=== PATIENT | male | born 1940 | race Two or more races ===

== ENCOUNTER 2023-10-07 09:29 | Emergency (ER) | payer MEDICARE, OTHER, SELFPAY ==
[2023-10-07 09:36] VITALS: BP 144/52
[2023-10-07 09:39] VITALS: BP 144/52
--- NOTE | 2023-10-07 09:58 | ED.GENMED ---
History of Present Illness
<Kevyn Leo PA-C - Last Filed: 10/07/23 10:54>
General
Chief Complaint: Vascular Access Problem
Source: patient
Exam Limitations: none
Time Seen by Provider: 10/07/23 09:44
Travel History
Have you had any contact with someone who has COVID-19?: Unable to Answer
Do you have any symptoms of coronavirus? Fever > 100 degrees, chills, cough, shortness of breath, sore throat, loss of taste or smell, muscle aches, or headache?: Unable to Answer
History of Present Illness
History of Present Illness:
83-year-old male presents from [facility] facility with bleeding from AV fistula on right upper extremity. He is a Friday dialysis patient. Cannot provide any history. Pressure bandage was applied at the facility.
Past History
<Kevyn Leo PA-C - Last Filed: 10/07/23 10:54>
Past History
ED Past Medical History: HTN, Hypercholesterolemia and Other (ESRD); Negative Cancer, IDDM or DC
ED Past Surgical History: Other (RUE Fistula); Negative Cardiac
Social History
Tobacco: Non-smoker
Alcohol: None
Drug: None
Personal: Other
Employment: Other
Family History
Family History: Unable to obtain
Phy Exam
<Kevyn Leo PA-C - Last Filed: 10/07/23 10:54>
Physical Exam
Physical Exam:
General: Well-appearing male no acute respiratory distress
HEENT: Normocephalic atraumatic
Extremities: AV fistula noted in right upper extremity with thrill. There is a pinhole site of bleeding noted after the pressure bandage was removed. This was a slow rate of bleeding.
Vascular: 2+ radial pulse right wrist
Course
<KELLIE Abbott Last Filed: 10/07/23 10:54>
Vital Signs
Initial and Last Documented VS:
Initial Vital Signs
BP
144/52
10/07/23 09:36
Last Documented Vital Signs
Temp Pulse Resp BP Pulse Ox
98.2 F 65 16 144/70 100
10/07/23 09:39 10/07/23 10:30 10/07/23 11:44 10/07/23 11:44 10/07/23 11:44
<Darnell Cardona, - Last Filed: 10/07/23 13:38>
Vital Signs
Initial and Last Documented VS:
Initial Vital Signs
BP
144/52
10/07/23 09:36
Last Documented Vital Signs
Temp Pulse Resp BP Pulse Ox
98.2 F 65 16 144/70 100
10/07/23 09:39 10/07/23 10:30 10/07/23 11:44 10/07/23 11:44 10/07/23 11:44
<Kevyn Leo PA-C - Last Filed: 10/07/23 10:54>
MDM/Problems Addressed
Differential Diagnosis Includes:
Initial pressure bandage was removed 10 there is still slight ooze. The site was cleansed with saline then surgical foam with nonstick gauze gauze and Coban was applied and a pressure bandage. Will reevalulate.
<Kevyn Leo PA-C - Last Filed: 10/07/23 10:54>
*Critical Care Note
Total Time (30-74mins, 75-104mins- exclusive of procedures): Not Applicable
<Kevyn Leo PA-C - Last Filed: 10/07/23 10:54>
Update Note
Update Note:
Dressing taken down. No further bleeding noted reapplied Coban on top of the gauze and surgical foam. Stable for discharge back to facility
ED Attending Note
<Kevyn Leo PA-C - Last Filed: 10/07/23 10:54>
-
Portions of this chart may have been created with voice recognition software.� Occasional wrong word or��sound alike� substitutions may have occurred due to the inherent limitations of voice recognition software.
<Darnell Cardona DO - Last Filed: 10/07/23 13:38>
ED Attending Note
I performed the substantive portion of visit, reviewed & personally made and approve the management plan that is documented in note by myself or HIEN.: Yes
ED Attending Note:
I have reviewed and agree with history and treatment plan by Harley Leo. Bleeding controlled, stable for discharge.
Discharge Plan
Departure
Patient Disposition: Home (Routine Discharge)
Date of Disposition: 10/07/23
Time of Disposition: 10:53
Patient with high blood pressure during this ER visit?: No
Discharge Problem:
Hemorrhage of arteriovenous fistula
Prescriptions:
No Action
carvedilol 6.25 mg Tablet
3.125 mg feeding tube Q12
atorvastatin 20 mg Tablet
40 mg feeding tube DAILY
insulin glargine [Lantus U-100 Insulin] 100 unit/mL Solution
8 unit SC DAILY
melatonin 3 mg Tablet
6 mg feeding tube HS
insulin aspart U-100 [Novolog U-100 Insulin aspart] 100 unit/mL Solution
0 unit SC ACHS
Patient Comments:
150-200 = 4 units, 151-200=5units, 201-250 = 7 units, 251-300= 10 units.
albuterol sulfate 90 mcg/actuation Hfa Aerosol Inhaler
2 puff INHALATION R Q4HPRN PRN (Reason: sob/wheezing)
acetaminophen [Tylenol] 325 mg Tablet
650 mg feeding tube Q4HPRN PRN (Reason: mild pain)
diphenhydramine-zinc acetate 1-0.1 % Cream
1 applic TOPICAL Q8HPRN PRN (Reason: itchy skin)
Renal Caps 1 mg Capsule
1 cap feeding tube DAILY
isosorbide dinitrate 10 mg Tablet
10 mg feeding tube TID Qty: 0 0RF
docusate sodium [Colace] 100 mg Capsule
100 mg PO BID Qty: 0 0RF
heparin (porcine) 5,000 unit/mL Solution
5,000 unit SC Q12H Qty: 0 0RF
fluticasone furoate-vilanterol [Breo Ellipta] 100-25 mcg/dose Blister With Device
1 inh INHALATION R DAILY Qty: 0 0RF
midodrine 5 mg Tablet
5 mg feeding tube .WITH MEALS
olanzapine 2.5 mg Tablet
2.5 mg feeding tube DAILY
vitamin B complex-folic acid
1 tab G-tube DAILY
Referrals:
Nemesio Sherwood MD [Family Provider] -
Activity Restrictions/Additional Instructions:
Please return here for any worsening symptoms otherwise resume dialysis as planned for tomorrow
Interventions
Interventions:
*Risk Screen - Suicide Last Done: 10/07/23 09:40
*Neglect/Abuse Screening Last Done: 10/07/23 09:40
ED- Fall Risk Assessment Last Done: 10/07/23 09:42
*ED COVID-19 Vaccine History Last Done: 10/07/23 09:41
*Nursing Disposition Last Done: 10/07/23 11:44
Discharge Date and Time
Discharge Date/Time: 10/07/23 11:45
[2023-10-07 10:00] VITALS: BP 144/57
[2023-10-07 11:44] VITALS: BP 144/70
== END 2023-10-07 11:45 | disposition home or self-care (01) ==
LOC: EMR 09:29
PROVIDERS: EMERGENCY PHYSICIAN Emergency Medicine; FAMILY PHYSICIAN Internal Medicine
DX: T82.838A Hemorrhage due to vascular prosthetic devices, implants and grafts, initial encounter (principal); X58.XXXA Exposure to other specified factors, initial encounter; I12.0 Hypertensive chronic kidney disease with stage 5 chronic kidney disease or end stage renal disease; E11.22 Type 2 diabetes mellitus with diabetic chronic kidney disease; N18.6 End stage renal disease; E78.00 Pure hypercholesterolemia, unspecified; Z99.2 Dependence on renal dialysis
CPT/HCPCS: 99282

== ENCOUNTER 2023-12-11 17:26 | Emergency (ER) | payer MEDICARE, OTHER, SELFPAY ==
[2023-12-11] VITALS (7 sets, daily range): BP systolic 153–160; BP diastolic 57–67; BMI 20.5
[2023-12-11 18:51] LABS: COVID-19 Antigen Negative (Negative)
[2023-12-11 18:54] LABS: % Basophils 0.8 % (0-2); % Eosinophils 3.6 % (0-6); % Immature Granulocytes 0.3 % (0-0.5); % Lymphocytes 17.8 % (20.5-51.1); % Monocytes 9.2 % (1.7-9.3); % Neutrophils 68.3 % (42.2-75.2); Absolute Basophils 0.1 10^3/uL (0-0.2); Absolute Eosinophils 0.3 10^3/uL (0-0.7); Absolute Lymphocytes 1.3 10^3/uL (1.2-3.4); Absolute Monocytes 0.7 10^3/uL (0.1-0.6); Absolute Neutrophils 4.9 10^3/uL (1.4-6.5); Hematocrit 35.5 % (39.0-52.0); Hemoglobin 11.1 g/dL (13.0-18.0); Mean Corp Hgb Conc. 31.3 g/dL (33.0-37.0); Mean Corpuscular Hgb 30.6 pg (27.0-31.0); Mean Corpuscular Volume 97.8 fL (80.0-94.0); Mean Platelet Volume 9.6 fL (7.4-10.4); Nucleated Red Blood Cells % 0 % (-); Platelet Count 206 10^3/uL (130-400); Red Blood Cell Count 3.63 10^6/uL (4.70-6.10); Red Cell Dist. Width 15.8 % (11.5-14.5); White Blood Cell Count 7.2 10^3/uL (4.8-10.8)
[2023-12-11 19:07] LABS: Blood Urea Nitrogen 48 mg/dl (9-20); Calcium 9.4 mg/dl (8.4-10.2); Carbon Dioxide 28 mmol/L (22-30); Chloride 93 mmol/L (98-107); Estimated Creatinine Clearance 12 ml/min; Glucose 256 mg/dl (70-99); Potassium 4.5 mmol/L (3.5-5.1); Sodium 130 mmol/L (135-145); eGFR 15.63
--- NOTE | 2023-12-11 19:37 | ED.GENMED ---
History of Present Illness
General
Chief Complaint: Vascular Access Problem
Source: patient
Time Seen by Provider: 12/11/23 18:14
Travel History
Have you had any contact with someone who has COVID-19?: No
Do you have any symptoms of coronavirus? Fever > 100 degrees, chills, cough, shortness of breath, sore throat, loss of taste or smell, muscle aches, or headache?: No
History of Present Illness
History of Present Illness:
83-year-old male brought to the emergency room for evaluation of bleeding from his fistula. Patient had dialysis yesterday. Family noted small ooze coming from the fistulous at the puncture site. Fistula has been working for the past 5 years.
Patient is also noted to have a cough. He is unable to provide any history. Thirdly the family note that the cap to the feeding tube has broken off. They cannot recall when the feeding tube was last changed.
Past History
Past History
ED Past Medical History: HTN, Hypercholesterolemia and Other (ESRD); Negative Cancer, IDDM or NM
ED Past Surgical History: Other (RUE Fistula); Negative Cardiac
Social History
Tobacco: Non-smoker
Alcohol: None
Drug: None
Personal: Other
Employment: Other
Family History
Family History: Unable to obtain
Phy Exam
Physical Exam
Physical Exam:
General: Awake, chronic ill-appearing, nonverbal
Vitals: unremarkable
Head: Atraumatic
Eyes: Pupils equal, EOMI
Throat: Airway intact, no exudates
Neck: Trachea midline
Lungs: Clear and equal b/l
Heart: Regular rate, no murmurs
Abd: Soft, Nontender, feeding tube in place, To the infusion port is broken off no pulsatile mass
Neuro: No acute findings
Skin: Warm, dry, no rash
Extremities: pulses equal b/l, no edema
Course
Orders/Labs/Results
Orders:
Orders
12/11/23 18:21
CR Chest - 2 Views Urgent
Comment:
Reason For Exam: cough, sob
12/11/23 18:29
COVID-19 Antigen Urgent
Source: Nasal Swab
Influenza A+B Rapid Molecular Urgent
MERVAT Source: Nasal Swab
Specimen Description:
12/11/23 18:44
Basic Metabolic Panel Urgent
Complete Blood Count/With Diff Urgent
Blood Culture Q30M
MERVAT Source: Blood/Venous
Specimen Description:
12/11/23 19:00
Blood Culture Q30M
MERVAT Source: Blood/Venous
Specimen Description:
Abnormal Lab Results
12/11/23
18:44
RBC 3.63 L 10^6/uL
(4.70-6.10)
Hgb 11.1 L g/dL
(13.0-18.0)
Hct 35.5 L %
(39.0-52.0)
MCV 97.8 H fL
(80.0-94.0)
MCHC 31.3 L g/dL
(33.0-37.0)
RDW 15.8 H %
(11.5-14.5)
Absolute Monos (auto) 0.7 H 10^3/uL
(0.1-0.6)
Lymphocytes % 17.8 L %
(20.5-51.1)
Sodium 130 L mmol/L
(135-145)
Chloride 93 L mmol/L
(98-107)
BUN 48 H mg/dl
(9-20)
Creatinine 3.7 H mg/dL
(0.7-1.3)
Glucose 256 H mg/dl
(70-99)
12/11/23 18:44
12/11/23 18:44
Vital Signs
Initial and Last Documented VS:
Initial Vital Signs
Pulse Ox
99
12/11/23 17:30
Last Documented Vital Signs
Temp Pulse BP Pulse Ox
99.2 F 74 155/61 97
12/11/23 18:35 12/11/23 17:34 12/11/23 18:00 12/11/23 18:30
MDM/Problems Addressed
Differential Diagnosis Includes:
Thrombocytopenia, stenosis, pseudoaneurysm of the fistula
MDM/Problems Addressed:
Patient brought to the emergency room from [facility] for bleeding from his dialysis fistula. This was dressed with Surgicel and bleeding controlled. Patient does not require emergent intervention at this time but he should follow-up with
vascular surgery for further evaluation of this fistula. Patient also noted to have a cough. Workup for this was negative. No pneumonia on x-ray. Thoroughly the patient's son noted that his feeding tube Broke off. This is a longstanding feeding
tube. This was replaced with an 18 [place] gastrostomy tube exactly the same as what was in there.
*Critical Care Note
Total Time (30-74mins, 75-104mins- exclusive of procedures): Not Applicable
ED Attending Note
-
Portions of this chart may have been created with voice recognition software.� Occasional wrong word or��sound alike� substitutions may have occurred due to the inherent limitations of voice recognition software.
Discharge Plan
Departure
Patient Disposition: Penitentiary/SNF
Date of Disposition: 12/11/23
Time of Disposition: 19:37
Condition: Fair
Discharge Problem:
Cough, Complication of arteriovenous dialysis fistula, Feeding tube dysfunction
Instructions: Cough, Adult (DC)
Prescriptions:
No Action
atorvastatin 20 mg Tablet
40 mg feeding tube DAILY
insulin glargine [Lantus U-100 Insulin] 100 unit/mL Solution
11 unit SC DAILY
melatonin 3 mg Tablet
6 mg feeding tube HS
insulin aspart U-100 [Novolog U-100 Insulin aspart] 100 unit/mL Solution
2 - 8 unit SC MEALS
Patient Comments:
12/11/2023: if 200-250 = 2; 251-300= 4; 301-350= 6; 351-400 = 8
albuterol sulfate 90 mcg/actuation Hfa Aerosol Inhaler
2 puff INHALATION R Q4HPRN PRN (Reason: sob/wheezing)
acetaminophen [Tylenol] 325 mg Tablet
650 mg feeding tube Q4HPRN PRN (Reason: mild pain)
diphenhydramine-zinc acetate 1-0.1 % Cream
1 applic TOPICAL TID
Patient Comments:
12/11/2023: apply to affected area for itching, hold for BP<100 HR<60
Renal Caps 1 mg Capsule
1 cap feeding tube DAILY
isosorbide dinitrate 10 mg Tablet
10 mg feeding tube TID Qty: 0 0RF
heparin (porcine) 5,000 unit/mL Solution
5,000 unit SC Q12H Qty: 0 0RF
fluticasone furoate-vilanterol [Breo Ellipta] 100-25 mcg/dose Blister With Device
1 inh INHALATION R DAILY Qty: 0 0RF
midodrine 5 mg Tablet
5 mg feeding tube MEALS
B Complex-C (W/Folic Acid) tablet
1 tab feeding tube DAILY
carvedilol 3.125 mg Tablet
3.125 mg feeding tube BID
lorazepam 0.5 mg Tablet
0.5 mg PO MOWEFR
docusate sodium 100 mg tablet
100 mg feeding tube BID
Referrals:
Amish Salmon III, MD [Active] -
Nemesio Sherwood MD [Family Provider] -
Activity Restrictions/Additional Instructions:
Pt should have an appointment with either the vascular surgeon who performed the original surgery or Dr. Salmon. There is no evidence for pneumonia on the chest x-ray. Covid and Flu tests are negative.
Interventions
Interventions:
*Risk Screen - Suicide Last Done: 12/11/23 17:42
*General Assessment Last Done: 12/11/23 17:42
*Neglect/Abuse Screening Last Done: 12/11/23 17:42
ED- Fall Risk Assessment Last Done: 12/11/23 17:44
*ED COVID-19 Vaccine History Last Done: 12/11/23 17:42
Discharge Date and Time
Print Language: MONEGASQUE
== END 2023-12-11 23:05 ==
LOC: EMR 17:26
PROVIDERS: EMERGENCY PHYSICIAN Emergency Medicine; FAMILY PHYSICIAN Internal Medicine
DX: R05.9 Cough, unspecified (principal); T82.838A Hemorrhage due to vascular prosthetic devices, implants and grafts, initial encounter; K94.23 Gastrostomy malfunction; Y83.2 Surgical operation with anastomosis, bypass or graft as the cause of abnormal reaction of the patient, or of later complication, without mention of misadventure at the time of the procedure; E78.00 Pure hypercholesterolemia, unspecified; I12.0 Hypertensive chronic kidney disease with stage 5 chronic kidney disease or end stage renal disease; N18.6 End stage renal disease; Z99.2 Dependence on renal dialysis; Z79.4 Long term (current) use of insulin
CPT/HCPCS: 99283; 43762; 71046; 80048; 85025; 87040; 87502; 87811

== ENCOUNTER 2024-03-04 21:12 | Observation (INO) | payer MEDICARE, OTHER, SELFPAY ==
[2024-03-04] VITALS (15 sets, daily range): BP systolic 152–181; BP diastolic 44–80; BMI 22.6
[2024-03-04 14:16] LABS: % Basophils 0.6 % (0-2); % Eosinophils 3.5 % (0-6); % Immature Granulocytes 0.6 % (0-0.5); % Lymphocytes 18.6 % (20.5-51.1); % Monocytes 8.2 % (1.7-9.3); % Neutrophils 68.5 % (42.2-75.2); Absolute Eosinophils 0.2 10^3/uL (0-0.7); Absolute Lymphocytes 1.2 10^3/uL (1.2-3.4); Absolute Monocytes 0.5 10^3/uL (0.1-0.6); Absolute Neutrophils 4.5 10^3/uL (1.4-6.5); Hematocrit 24.4 % (39.0-52.0); Hemoglobin 7.9 g/dL (13.0-18.0); Mean Corp Hgb Conc. 32.4 g/dL (33.0-37.0); Mean Corpuscular Hgb 32.2 pg (27.0-31.0); Mean Corpuscular Volume 99.6 fL (80.0-94.0); Mean Platelet Volume 9.4 fL (7.4-10.4); Nucleated Red Blood Cells % 0 % (-); Platelet Count 192 10^3/uL (130-400); Red Blood Cell Count 2.45 10^6/uL (4.70-6.10); Red Cell Dist. Width 14.7 % (11.5-14.5); White Blood Cell Count 6.6 10^3/uL (4.8-10.8)
[2024-03-04 14:35] LABS: ALT (SGPT) 26 U/L (0-50); AST (SGOT) 27 U/L (17-59); Albumin 3.7 g/dl (3.5-5.0); Alkaline Phosphatase 504 U/L (38-126); Blood Urea Nitrogen 53 mg/dl (9-20); Calcium 9.8 mg/dl (8.4-10.2); Carbon Dioxide 32 mmol/L (22-30); Chloride 93 mmol/L (98-107); Glucose 101 mg/dl (70-99); Potassium 3.8 mmol/L (3.5-5.1); Sodium 132 mmol/L (135-145); Total Bilirubin 0.6 mg/dl (0.2-1.3); Total Protein 7.1 g/dl (6.3-8.2); eGFR 22.82
--- NOTE | 2024-03-04 14:36 | ED.GENMED ---
History of Present Illness
<Myla Antonio PA-C - Last Filed: 03/04/24 16:38>
General
Chief Complaint: Abnormal Lab Value
Source: ambulance crew and alf
Exam Limitations: non verbal-adult
Time Seen by Provider: 03/04/24 13:48
Nursing documentation reviewed up to this point in time: agreed with
History of Present Illness
History of Present Illness:
PT IS A 83 Y/O M with h/o CAD, cardiomyopathy, ESRD on HD MWF last dialyzed yesterday
[facility]
pt apparently has been having hg int he 7s chronically for months'
he was last dialyzed yesterday
pt has no complaitns but he is mostly nonverbal
Past History
<KELLIE Macias Last Filed: 03/04/24 16:38>
Past History
ED Past Medical History: HTN, Hypercholesterolemia and Other (ESRD); Negative Cancer, IDDM or MS
ED Past Surgical History: Other (RUE Fistula); Negative Cardiac
Social History
Tobacco: Non-smoker
Alcohol: None
Drug: None
Personal: Other
Employment: Other
Family History
Family History: Unable to obtain
Review of Systems
<Myla Antonio PA-C - Last Filed: 03/04/24 16:38>
Review of Systems
Allergies reviewed?: Yes
Unable to obtain full review of systems at this time due to: non-verbal
Phy Exam
<Myla Antonio PA-C - Last Filed: 03/04/24 16:38>
Physical Exam
Physical Exam:
GENERAL: Alert , in no apparent distress
EYE: pupils equal and reactive
NECK: Supple
ENT: o/p clr, mmm.
CARDIAC: Regular rate and rhythm, murmur
LUNGS: Clear breath sounds bilaterally, no acute respiratory distress, no wheezes/rales/rhonchi
ABDOMEN: Soft, without focal tenderness, no r/g, no cvat, normal bowel sounds
heme neg brown stool
peg tube
NEUROLOGICAL: Awake; unable to assess status; he does respond to questions but i am unable to understand him
generally weak
smiles at times
SKIN: Warm and dry,
MUSCULOSKELETAL: No edema, contractures
PSYCH: Normal and appropriate interaction.
Course
<Myla Antonio PA-C - Last Filed: 03/04/24 16:38>
Orders/Labs/Results
Orders:
Orders
03/04/24 13:53
Type+Screen Urgent
Complete Blood Count/With Diff Urgent
Comprehensive Metabolic Panel Urgent
03/04/24 14:34
CR Chest - 2 Views Urgent
Comment:
Reason For Exam: ASSESS FLUID STATUS
03/04/24 14:58
Blood Bank Products [* Blood Bank Products] Urgent
Blood Bank Products: *Packed RBC Leuko(PRBC's)
Quantity: 1
Transfuse Today: Yes
Reason: Anemia
03/04/24 17:17
Ipratropium/Albuterol Sulfate [Duoneb] 3 ml .ROUTE .STK-MED ONE
03/04/24 17:18
Ipratropium/Albuterol Sulfate [Duoneb] 3 ml INH R NOW ONE
03/04/24 18:58
Diphenhydramine [Benadryl] 25 mg IV NOW STA
03/04/24 19:19
Portable Chest Xray [CR Chest Portable - 1 View] Stat
Comment: post 1 unit PRBC transfusion, new Lsided crackles
Reason For Exam: increasing SOBand restlessness
Reason Study Needs to be Portable: Patient Unstable
Abnormal Lab Results
03/04/24 03/04/24 03/04/24
13:53 14:58 16:27
RBC 2.45 L 10^6/uL
(4.70-6.10)
Hgb 7.9 L g/dL
(13.0-18.0)
Hct 24.4 L %
(39.0-52.0)
MCV 99.6 H fL
(80.0-94.0)
MCH 32.2 H pg
(27.0-31.0)
MCHC 32.4 L g/dL
(33.0-37.0)
RDW 14.7 H %
(11.5-14.5)
Immature Gran % 0.6 H %
(0-0.5)
Lymphocytes % 18.6 L %
(20.5-51.1)
Sodium 132 L mmol/L
(135-145)
Chloride 93 L mmol/L
(98-107)
Carbon Dioxide 32 H mmol/L
(22-30)
BUN 53 H mg/dl
(9-20)
Creatinine 2.7 H mg/dL
(0.7-1.3)
Glucose 101 H mg/dl
(70-99)
Alkaline Phosphatase 504 H U/L
(38-126)
POC Glucose 105 H mg/dl
(70-99)
Crossmatch IS Only See Detail See Detail
03/04/24 13:53
03/04/24 13:53
Vital Signs
Initial and Last Documented VS:
Initial Vital Signs
Temp Pulse Resp BP Pulse Ox
97.8 F 73 30 160/61 94
03/04/24 13:42 03/04/24 13:42 03/04/24 13:42 03/04/24 13:42 03/04/24 13:42
Last Documented Vital Signs
Temp Pulse Resp BP Pulse Ox
98.5 F 74 36 169/61 99
03/04/24 19:22 03/04/24 19:22 03/04/24 19:22 03/04/24 19:22 03/04/24 19:22
<Soraya Szymanskifelicitas, DO - Last Filed: 03/04/24 20:25>
Orders/Labs/Results
Orders:
Orders
03/04/24 13:53
Type+Screen Urgent
Complete Blood Count/With Diff Urgent
Comprehensive Metabolic Panel Urgent
03/04/24 14:34
CR Chest - 2 Views Urgent
Comment:
Reason For Exam: ASSESS FLUID STATUS
03/04/24 14:58
Blood Bank Products [* Blood Bank Products] Urgent
Blood Bank Products: *Packed RBC Leuko(PRBC's)
Quantity: 1
Transfuse Today: Yes
Reason: Anemia
03/04/24 17:17
Ipratropium/Albuterol Sulfate [Duoneb] 3 ml .ROUTE .STK-MED ONE
03/04/24 17:18
Ipratropium/Albuterol Sulfate [Duoneb] 3 ml INH R NOW ONE
03/04/24 18:58
Diphenhydramine [Benadryl] 25 mg IV NOW STA
03/04/24 19:19
Portable Chest Xray [CR Chest Portable - 1 View] Stat
Comment: post 1 unit PRBC transfusion, new Lsided crackles
Reason For Exam: increasing SOBand restlessness
Reason Study Needs to be Portable: Patient Unstable
Abnormal Lab Results
03/04/24 03/04/24 03/04/24
13:53 14:58 16:27
RBC 2.45 L 10^6/uL
(4.70-6.10)
Hgb 7.9 L g/dL
(13.0-18.0)
Hct 24.4 L %
(39.0-52.0)
MCV 99.6 H fL
(80.0-94.0)
MCH 32.2 H pg
(27.0-31.0)
MCHC 32.4 L g/dL
(33.0-37.0)
RDW 14.7 H %
(11.5-14.5)
Immature Gran % 0.6 H %
(0-0.5)
Lymphocytes % 18.6 L %
(20.5-51.1)
Sodium 132 L mmol/L
(135-145)
Chloride 93 L mmol/L
(98-107)
Carbon Dioxide 32 H mmol/L
(22-30)
BUN 53 H mg/dl
(9-20)
Creatinine 2.7 H mg/dL
(0.7-1.3)
Glucose 101 H mg/dl
(70-99)
Alkaline Phosphatase 504 H U/L
(38-126)
POC Glucose 105 H mg/dl
(70-99)
Crossmatch IS Only See Detail See Detail
03/04/24 13:53
03/04/24 13:53
Vital Signs
Initial and Last Documented VS:
Initial Vital Signs
Temp Pulse Resp BP Pulse Ox
97.8 F 73 30 160/61 94
03/04/24 13:42 03/04/24 13:42 03/04/24 13:42 03/04/24 13:42 03/04/24 13:42
Last Documented Vital Signs
Temp Pulse Resp BP Pulse Ox
98.5 F 74 36 169/61 99
03/04/24 19:22 03/04/24 19:22 03/04/24 19:22 03/04/24 19:22 03/04/24 19:22
<Myla Antonio PA-C - Last Filed: 03/04/24 16:38>
MDM/Problems Addressed
Differential Diagnosis Includes:
anemia of chronic diseae, GI bleed
MDM/Problems Addressed:
83 y/o M with h/o esrd on hd
here with persistent anemia
apparently there was a low hg in dialysis yesterday
he was sent her for transfusion
I spoke with the nurse at [place] [facility] he says that he usually has hemoglobins in the low sevens. He was adopted above a for several months. She was unclear why the patient needed to be transported and thus giving the phone number to speak with
the physician who sent him here. I talked to Dr. Olsen he said that the patient's family is ultimately going to take him home. It is unclear whether will be hospice or not but in order for the patient to have a little bit better quality of life the
physician wanted him to have 1 unit of blood. Okay with him being transported back today. He is not fluid overloaded at this point. He was dialyzed yesterday. He is afebrile and heme-negative from below. I called the son and obtained verbal
consent over the phone. Will transfuse and discharge back to facility
<Myla Antonio PA-C - Last Filed: 03/04/24 16:38>
*Critical Care Note
Total Time (30-74mins, 75-104mins- exclusive of procedures): 30
comment:
Critical care statement: A total of 30 minutes of critical care time was provided for this patient. This includes management of unstable vital signs, evaluation of the patient at bedside, reviewing the patient's pertinent medical records, discussion
with consultants, review of old EKGs and review of pertinent medical records. This time with separate from time utilized to perform the aforementioned documented procedures
ED Attending Note
<Myla Antonio PA-C - Last Filed: 03/04/24 16:38>
-
Portions of this chart may have been created with voice recognition software.� Occasional wrong word or��sound alike� substitutions may have occurred due to the inherent limitations of voice recognition software.
<Sorayanerissa Greene, DO - Last Filed: 03/04/24 20:25>
ED Attending Note
Patient seen and examined by attending physician: Yes
I performed the substantive portion of visit, reviewed & personally made and approve the management plan that is documented in note by myself or HIEN.: Yes
I performed a history and physical exam of patient and discussed management with resident, I reviewed resident's note and agree with documented findings and plan of care.: Yes
ED Attending Note:
Patient initially seen and evaluated by physician video library assistant. Patient is in end-stage renal disease the patient, receives dialysis MWF. 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 Patient was sent from
his facility for evaluation of his anemia and need for transfusion. Hemoglobin here found to be 7.9. In discussion with his physician, recommending that he receive 1 unit of blood. Plan was for patient to go back to his facility after transfusion
has been completed.
Patient received transfusion, however after transfusion complete, patient increasingly dyspneic. On pulmonary examination, crackles bilaterally. Patient initially had a chest x-ray, without significant acute cardiopulmonary disease. Repeat chest
x-ray shows interval changes with pulmonary edema. Patient does not make urine, cannot administer Lasix. Patient is due for dialysis tomorrow. For this reason feel patient warrants admission for continued respiratory monitoring, and hemodialysis
in the morning.
Discharge Plan
Departure
Patient with high blood pressure during this ER visit?: No
Condition: Fair
Covid-19: Not Applicable
Discharge Problem:
Anemia
Instructions: Anemia of inflammation (anemia of chronic disease)
Prescriptions:
No Action
insulin glargine [Lantus U-100 Insulin] 100 unit/mL Solution
15 unit SC DAILY
melatonin 3 mg Tablet
6 mg feeding tube HS
insulin aspart U-100 [Novolog U-100 Insulin aspart] 100 unit/mL Solution
0 sliding scale dose SC MEALS
Patient Comments:
03/04/24: if 200-250 = 2u; 251-300= 4u; 301-350= 6u; 351-400 = 8u
albuterol sulfate 90 mcg/actuation Hfa Aerosol Inhaler
2 puff INHALATION R Q4HPRN PRN (Reason: sob/wheezing)
acetaminophen [Tylenol] 325 mg Tablet
650 mg feeding tube Q4HPRN PRN (Reason: mild pain)
isosorbide dinitrate 10 mg Tablet
10 mg feeding tube TID Qty: 0 0RF
heparin (porcine) 5,000 unit/mL Solution
5,000 unit SC Q12H Qty: 0 0RF
fluticasone furoate-vilanterol [Breo Ellipta] 100-25 mcg/dose Blister With Device
1 inh INHALATION R DAILY Qty: 0 0RF
B Complex-C (W/Folic Acid) tablet
1 tab feeding tube DAILY
docusate sodium 50 mg/5 mL Liquid
10 ml feeding tube BID
sennosides [senna] 8.6 mg Tablet
8.6 mg feeding tube HS
carvedilol 6.25 mg Tablet
6.25 mg feeding tube BID
ipratropium-albuterol 0.5 mg-3 mg(2.5 mg base)/3 mL Solution For Nebulization
3 ml INHALATION R Q8HPRN
polyethylene glycol 3350 [Miralax] 17 gram Powder In Packet
17 g feeding tube DAILYPRN PRN (Reason: constipation)
lorazepam 2 mg Tablet
2 mg feeding tube MOWEFR
lorazepam 1 mg Tablet
1 mg feeding tube HS
midodrine 10 mg Tablet
10 mg feeding tube MOWEFR
Referrals:
Nemesio Sherwood MD [Family Provider] -
Activity Restrictions/Additional Instructions:
WE GAVE LEAH 1 UNIT OF BLOOD
RETURN FOR ANY COCNERNS.
Interventions
Interventions:
*Risk Screen - Suicide Last Done: 03/04/24 13:42
*General Assessment Last Done: 03/04/24 13:42
*Neglect/Abuse Screening Last Done: 03/04/24 13:42
ED- Fall Risk Assessment Last Done: 03/04/24 19:22
Discharge Date and Time
Print Language: PANAMANIAN
[2024-03-04 16:28] LABS: Glucose - Point of Care 105 mg/dl (70-99)
[2024-03-04] MEDS: DUONEB 3 ML INH (17:19)
[2024-03-04] MEDS: BENADRYL 25 MG IV (19:45)
--- NOTE | 2024-03-04 20:45 | HPS.HSE ---
Family Physician
-
Family Physician: Nemesio Sherwood
Chief Complaint
-
Shortness of breath
History of Present Illness
This is an 83-year-old Polish speaking male with past medical history of end-stage renal disease on hemodialysis Friday via a right upper extremity AV fistula, Parkinson disease, diabetes on insulin, hypertension, anemia of chronic
disease who presents to the emergency department for a blood transfusion from he is [facility].
Patient apparently has had blood transfusion in the past. Per patient and family members has been no episode of melena or hematochezia. He had a episode of extensive bleeding last week due to pulling out the needle during dialysis secondary to
agitation. His range of hemoglobin in the labs he have been from 7.2-11.1. He is not on any anticoagulation.
The plan by ED was for the patient to receive a unit of blood and be sent back to the [facility]. Hemoglobin was 7.9 patient received 1 unit. After 1 unit the patient started having respiratory distress with shortness of breath. Oxygen
saturation declined and was placed on 2 L with a saturation of 98%. Repeat x-ray shows pulmonary edema.
Rest of his labs are unremarkable and consistent with ESRD.
Medical History
Past Medical History
Past Medical History: Reports HTN, IDDM and Renal Failure
Additional Past Medical History:
Parkinson disease
Past Surgical History: Reports None
Social History
Unable to obtain full social history at this time due to: Language Barrier
Tobacco: Non-smoker
Alcohol: None
Drug: None
Personal: Single
Living: Usp
Employment: Retired
Family History
Family History: Not pertinent
Allergies / Home Medications
Allergies reflects when Allergies were last updated in [facility].
Home Medications with original date entered in [facility]
Allergy/Medication List:
Allergies
Allergy/AdvReac Type Severity Reaction Status Date / Time
No Known Allergies Allergy Verified 12/11/23 17:41
Home Medications
insulin aspart U-100 100 unit/mL subcutaneous solution (Novolog U-100 Insulin aspart) 0 sliding scale dose SC MEALS 05/22/23
insulin glargine 100 unit/mL subcutaneous solution (Lantus U-100 Insulin) 15 unit SC DAILY 05/22/23
melatonin 3 mg tablet 6 mg feeding tube HS 05/22/23
albuterol sulfate 90 mcg/actuation aerosol inhaler 2 puff inhalation R Q4HPRN PRN sob/wheezing 06/13/23
acetaminophen 325 mg tablet (Tylenol) 650 mg feeding tube Q4HPRN PRN mild pain 08/27/23
fluticasone furoate 100 mcg-vilanterol 25 mcg/dose inhalation powder (Breo Ellipta) 1 inh inhalation R DAILY Lung/breathing issues #0 ea 08/29/23
heparin (porcine) 5,000 unit/mL injection solution 5,000 unit SC Q12H Blood clot prevention/tx #0 mL 08/29/23
isosorbide dinitrate 10 mg tablet 10 mg feeding tube TID Blood pressure #0 tabs 08/29/23
B Complex-C (W/Folic Acid) 1 tab feeding tube DAILY 12/11/23
carvedilol 6.25 mg tablet 6.25 mg feeding tube BID 03/04/24
docusate sodium 50 mg/5 mL oral liquid 10 ml feeding tube BID 03/04/24
ipratropium 0.5 mg-albuterol 3 mg (2.5 mg base)/3 mL nebulization soln 3 ml inhalation R Q8HPRN 03/04/24
lorazepam 1 mg tablet 1 mg feeding tube HS 03/04/24
lorazepam 2 mg tablet 2 mg feeding tube MOWEFR 03/04/24
midodrine 10 mg tablet 10 mg feeding tube MOWEFR 03/04/24
polyethylene glycol 3350 17 gram oral powder packet (Miralax) 17 g feeding tube DAILYPRN PRN constipation 03/04/24
sennosides 8.6 mg tablet (senna) 8.6 mg feeding tube HS 03/04/24
Review of Systems
-
History Source: Family
Constitutional: Reports No Symptoms
EENT: Reports No Symptoms
Respiratory: Reports No Symptoms
Cardiac: Reports No Symptoms
Abdomen/GI: Reports No Symptoms
: Reports No Symptoms
Musculoskeletal: Reports No Symptoms
Skin: Reports No Symptoms
Neurological: Reports No Symptoms
Endocrine: Reports No Symptoms
Hematologic/Lymphatic: Reports No Symptoms
Psych: Reports No Symptoms
Physical Exam
Vital Signs
Vital Signs
Temp Pulse Resp BP Pulse Ox
98.5 F 74 36 169/61 99
03/04/24 19:22 03/04/24 19:22 03/04/24 19:22 03/04/24 19:22 03/04/24 19:22
Physical Exam
General: No Apparent Distress
HEENT: NormoCephalic, Anicteric, Moist mucous membranes, PERRLA and Oxygen
Respiratory: Crackles
Cardiac: S1/S2 and Regular Rhythm
Breast: Deferred by me
GI: Soft, Non Tender and Non Distended
Rectal: Deferred by Provider
Genito-urinary: Deferred by me
Musculoskeletal: No Clubbing, No Cyanosis and No Edema
Skin: Warm
Neuro: Awake, Alert and Nonfocal/grossly intact
Hematologic/Lymphatic: No Lymphadenopathy
Psych: Calm
Laboratory Results
-
03/04/24 13:53
03/04/24 13:53
Laboratory Results
Total Bilirubin 0.6 mg/dl (0.2-1.3) 03/04/24 13:53
AST 27 U/L (17-59) 03/04/24 13:53
ALT 26 U/L (0-50) 03/04/24 13:53
Alkaline Phosphatase 504 U/L (38-126) H 03/04/24 13:53
Data Reviewed
-
Diagnostic Radiology: Image Personally Visualized and interpreted
Lab Data: Labs Reviewed by me
Old Records: Reviewed
Impression/Plan
-
IMPRESSION:
PLAN:
1. Acute pulmonary edema - Patient with acute post-transfusion pulmonary edema. Iatrogenic. Has bilateral crackles on ausculation with new infiltrates on repeat ECG after transfusion c/w acute pulmonary edema. Has had episodes of pulmonary edema
in the past. Diastolic CHF. Last HD was yesterday. Currently o2 sat is 99% on 2 L and patient is comfortable. WOB is acceptable.
- admit to medsurg obs
- supplemental oxygen for now.
- plan for urgent HD in am, consulted nephrology
- ntg if hypertensive.
- hold tubefeeds and place fluid restrictions.
- hold midodrine
2. Anemia - ACD. Hgb 7.9, no indication for acute transfusion. Can be managed per renal with ANAYA/Iron
- no indication for transfusion but s/p 1 unit in ED
- check iron panel, folate, b12 and ferritin
- f/u with nephrology
3. DM II - 15 lantus HS and sliding scale per home regimen
- holding lantus while off TF
- sliding scale insulin q 6 hours
4. ESRD - HD M/W/F
- nephrology consult,
- holding TF for now
DVT PPX - heparin sq
Full Code
--- NOTE | 2024-03-04 23:00 | PTCARENOTE ---
Received patient from ED. stable vitals. No distress noted. Gtube intact and clamped. Patient's son at bedside. confused to place/time/ situation. Bed alarm on for safety. 100% on 2L n/c. POC reviewed with patient and family.
[2024-03-04] MEDS: ISORDIL 10 MG TUBE (23:06)
[2024-03-04] MEDS: ATIVAN 1 MG TUBE (23:06)
[2024-03-04] MEDS: SENOKOT 8.6 MG TUBE (23:06)
[2024-03-04] MEDS: MELATONIN 6 MG TUBE (23:06)
[2024-03-04] MEDS: TYLENOL 650 MG TUBE (23:07)
[2024-03-04 23:17] LABS: Glucose - Point of Care 154 mg/dl (70-99)
[2024-03-05] MEDS: NOVOLOG FLEXPEN-LOW RESISTANCE 1 UNITS SC (00:42)
[2024-03-05 06:00] VITALS: BMI 22.9
[2024-03-05 06:02] LABS: Glucose - Point of Care 135 mg/dl (70-99)
[2024-03-05] MEDS: NOVOLOG FLEXPEN-LOW RESISTANCE SC ×2 (06:40→12:19)
[2024-03-05 07:34] VITALS: BP 165/61
[2024-03-05] MEDS: HEPARIN 5000 UNITS SC (07:38)
[2024-03-05] MEDS: ATIVAN 2 MG TUBE (07:38)
[2024-03-05] MEDS: COLACE LIQUID 100 MG TUBE (07:38)
[2024-03-05] MEDS: B COMPLEX w/VITAMIN C 1 CAPLET TUBE (07:38)
[2024-03-05] MEDS: ISORDIL TUBE (07:45)
[2024-03-05] MEDS: SYMBICORT 80/4.5 MCG INHALER 2 PUFF INH (07:46)
[2024-03-05] MEDS: RETACRIT 10000 UNITS IV (08:45)
[2024-03-05] MEDS: HEPARIN 500 UNITS IV (08:46)
[2024-03-05 08:50] LABS: Hematocrit 25.8 % (39.0-52.0); Hemoglobin 8.6 g/dL (13.0-18.0); Mean Corp Hgb Conc. 33.3 g/dL (33.0-37.0); Mean Corpuscular Volume 93.1 fL (80.0-94.0); Mean Platelet Volume 9.7 fL (7.4-10.4); Platelet Count 183 10^3/uL (130-400); Red Blood Cell Count 2.77 10^6/uL (4.70-6.10); White Blood Cell Count 6.9 10^3/uL (4.8-10.8)
[2024-03-05 09:01] LABS: Carbon Dioxide 23 mmol/L (22-30); Chloride 95 mmol/L (98-107); Iron 90 ug/dl (49-181); Potassium 3.9 mmol/L (3.5-5.1); Sodium 132 mmol/L (135-145)
[2024-03-05 09:11] LABS: Percent Saturation 37 % (20-50); Total Iron Binding Capacity 240 ug/dl (261-462)
--- NOTE | 2024-03-05 09:47 | W.CON.NEPH ---
Consultation
-
Date/Time Consultation Requested: 03/04/2024 22:13
Date/Time Consultation Performed: 03/05/2024 9:47AM
Requesting Provider: Hasmukh Rose
Performing Provider: Enma Morales
Reason for Consultation: ESRD on HD
Medical History
-
Chief Complaint: ESRD on HD
History of Present Illness:
Mr. Faulkner is a 83-year-old [facility] gentleman who follows usually at [facility], who has end-stage renal disease on hemodialysis for about four or five years time now. He is dialyzed via an AV fistula. He also has a history of Parkinson's
disease, anemia and came in for acute on chronic anemia requiring blood transfusion. Isamar has had transfusions in the past. He had extensive bleeding last weeka fter pulling out his needle during dialysis due to agitation. After his transfusion
in the ED, he was short of breath and had pulm edema. He was admitted for further management.
We are asked to assist in the management of his ESRD issues. He has also had history of hypertension on a multi-drug regimen and diabetes mellitus type 2 on insulin therapy. These have otherwise been fairly stable.
Past Medical History
1. Diabetes mellitus type 2.
2. Hypertension.
3. Hyperlipidemia.
4. ESRD.
5. Cataract surgery.
6. Appendectomy.
7. Left AV fistula.
8. Lumbar stenosis.
9. Bilateral footdrop.
10. Heart failure.
11. Cataract surgery.
Past Medical History: Other
Social History
Tobacco: Non-Smoker
Alcohol: None
Drug: None
Personal:
Living: Intermediate
Family History
no CKD
Allergies / Home Medications
Allergy/AdvReac Type Severity Reaction Status Date / Time
No Known Allergies Allergy Verified 12/11/23 17:41
�Medication �Instructions �Recorded �Confirmed �Type
insulin aspart U-100 100 unit/mL 0 sliding scale dose SC MEALS 05/22/23 03/04/24 History
subcutaneous solution (Novolog Diabetes
U-100 Insulin aspart)
insulin glargine 100 unit/mL 15 unit SC DAILY Diabetes 05/22/23 03/04/24 History
subcutaneous solution (Lantus
U-100 Insulin)
melatonin 3 mg tablet 6 mg feeding tube HS 05/22/23 03/04/24 History
albuterol sulfate 90 mcg/actuation 2 puff inhalation R Q4HPRN PRN 06/13/23 03/04/24 History
aerosol inhaler sob/wheezing
acetaminophen 325 mg tablet 650 mg feeding tube Q4HPRN PRN 08/27/23 03/04/24 History
(Tylenol) mild pain
fluticasone furoate 100 1 inh inhalation R DAILY 08/29/23 03/04/24 Rx
mcg-vilanterol 25 mcg/dose Lung/breathing issues #0 ea
inhalation powder (Breo Ellipta)
heparin (porcine) 5,000 unit/mL 5,000 unit SC Q12H Blood clot 08/29/23 03/04/24 Rx
injection solution prevention/tx #0 mL
isosorbide dinitrate 10 mg tablet 10 mg feeding tube TID Blood 08/29/23 03/04/24 Rx
pressure #0 tabs
B Complex-C (W/Folic Acid) 1 tab feeding tube DAILY 12/11/23 03/04/24 History
carvedilol 6.25 mg tablet 6.25 mg feeding tube BID Blood 03/04/24 03/04/24 History
Pressure
docusate sodium 50 mg/5 mL oral 10 ml feeding tube BID Constipation 03/04/24 03/04/24 History
liquid
ipratropium 0.5 mg-albuterol 3 mg 3 ml inhalation R Q8HPRN 03/04/24 03/04/24 History
(2.5 mg base)/3 mL nebulization Lung/Breathing Issues
soln
lorazepam 1 mg tablet 1 mg feeding tube HS 03/04/24 03/04/24 History
lorazepam 2 mg tablet 2 mg feeding tube MOWEFR Mental 03/04/24 03/04/24 History
Health/Anxiety
midodrine 10 mg tablet 10 mg feeding tube MOWEFR 03/04/24 03/04/24 History
polyethylene glycol 3350 17 gram 17 g feeding tube DAILYPRN PRN 03/04/24 03/04/24 History
oral powder packet (Miralax) constipation
sennosides 8.6 mg tablet (senna) 8.6 mg feeding tube HS Constipation 03/04/24 03/04/24 History
Review of Systems
-
Unable to obtain full review of systems at this time due to: Dementia, Language Barrier and Other (lethargy)
History Source: Patient
Physical Exam
Vital Signs
Vital Signs
Temp Pulse Resp BP Pulse Ox
98.1 F 73 16 165/61 100
03/05/24 07:34 03/05/24 07:45 03/05/24 07:45 03/05/24 07:34 03/05/24 07:45
Lab Results
WBC 6.9 10^3/uL (4.8-10.8) 03/05/24 08:22
RBC 2.77 10^6/uL (4.70-6.10) L 03/05/24 08:22
Hgb 8.6 g/dL (13.0-18.0) L 03/05/24 08:22
Hct 25.8 % (39.0-52.0) L 03/05/24 08:22
Plt Count 183 10^3/uL (130-400) 03/05/24 08:22
Sodium 132 mmol/L (135-145) L 03/05/24 08:22
Potassium 3.9 mmol/L (3.5-5.1) 03/05/24 08:22
Chloride 95 mmol/L (98-107) L 03/05/24 08:22
Carbon Dioxide 23 mmol/L (22-30) 03/05/24 08:22
BUN 53 mg/dl (9-20) H 03/04/24 13:53
Creatinine 2.7 mg/dL (0.7-1.3) H 03/04/24 13:53
eGFR 22.82 03/04/24 13:53
Glucose 101 mg/dl (70-99) H 03/04/24 13:53
Calcium 9.8 mg/dl (8.4-10.2) 03/04/24 13:53
Albumin 3.7 g/dl (3.5-5.0) 03/04/24 13:53
Physical Exam
General: No Distress, Nontoxic and Other (resting comfortably )
HEENT: PERRL, EOMI, Conjunctivae Clear, Oropharynx Clear/Moist, Dentition Intact, Facial Symmetry, Neck Supple, Trachea Midline, No JVD and No Thyromegaly
Respiratory: Crackels
Cardiac: S1/S2, Regular Rate/Rhythm and No Edema
Breast: N/A
Abdomen: Soft, Nontender, Nondistended, Normal Bowel Sounds and No Hepatosplenomegaly
Rectal: Deferred by Provider
Genito-urinary: No Costovertebral Tender
Musculoskeletal: No Clubbing, No Cyanosis and No Edema
Skin: Warm, Dry, No Clubbing, No Cyanosis, Normal Turgor and No Bruising
Neuro: Other (sleeping comfortably)
Hematologic/Lymphatic: No Cervical Lymphadenopathy
Data Reviewed
-
Radiology: Image Personally Visualized and interpreted (pulmonary edema noted )
Labs: Labs Reviewed by me, Discussed with Nurse and Discussed with Patient
Old Records: Reviewed
Assessment/Plan
-
Assessment:
Anemia
ESRD on HD
CHF
T2DM
HTN
Plan:
- HD today per usual schedule with plan for 3-3.5L UF
- s/p blood transfusion
--- NOTE | 2024-03-05 09:56 | W.PN.NEPH.HD ---
Assessment
-
- try to maximize UF as much as possible
- resting comfortably
Progress Note - Hemodialysis
-
Date of Service: March 05, 2024
Duration: 30 minutes and 3 hours
Potassium Bath: 3
Calcium Bath: 2.5
Opti-Dialyzer: 160
Ultrafiltration: Other
Blood Flow: 400
Dialysate Flow: 600
[2024-03-05 10:29] LABS: Vitamin B12 > 1000 pg/ml (239-931)
--- NOTE | 2024-03-05 11:42 | W.PN.HOSP.TC ---
Today's Communication/Plan
-
dc back to SNF
Assessment / Plan
Assessment / Plan
Assessment:
transfusion associated circulatory overload from 1 unit PRBC
Underlying hx of ESRD with chronic anemia of kidney disease
- last HD prior to hospitalization was Friday
- sent to ER for chronic anemia and to give 1 unit in efforts to improve QOL before dc from NH to home, possible for hospice
- unfortunately developed pulm edema post-transfusion requiring observation
- s/p HD today
- appreciate Nephrology
- Hb 8.6, no further transfusion indicated; did received Retacrit x 1
chronic hypoxic respiratory failure on 2L
- currently on 2L
Type 2 DM
- continue Lantus + SSI
DVT ppx: SC heparin
Code: Full
More than 30 minutes spent in discharge including
Final examination of the patient
Summarizing hospital stay
Instructions for continuing care to all relevant caregivers
Preparation of discharge records, prescriptions, and referral forms
Total time spent (in minutes): 42
Anticipated Discharge: Today
Subjective/Interval History
-
Date of Service: March 05, 2024
on HD, finished
on 2L which family previously reported is his baseline
Hb 8.6 after 1 unit last evening
Objective Data
-
Labs:
Laboratory Results
03/05/24 03/05/24
06:00 08:22
WBC Cancelled 6.9
Hgb Cancelled 8.6 L
Hct Cancelled 25.8 L
Plt Count Cancelled 183
Sodium 132 L
Potassium 3.9
Chloride 95 L
Carbon Dioxide 23
Vital Signs:
Vital Signs
Temp Pulse Resp BP Pulse Ox
98.1 F 73 16 165/61 100
03/05/24 07:34 03/05/24 07:45 03/05/24 07:45 03/05/24 07:34 03/05/24 07:45
I&O
03/04/24 03/05/24 03/06/24
06:59 06:59 06:59
Intake Total 250 / 250
Balance 250 / 250
Physical Exam
-
General: No Apparent Distress
HEENT: Normocephalic and Atraumatic
Respiratory: Negative Wheezes
Cardiac: Regular Rhythm and S1/S2
GI: Soft
Genito-urinary: No Costovertebral Tender
Neuro: Awake
Psych: Calm
Data Reviewed
-
Total Time Spent with Patient (in minutes): 42
Labs: Labs Reviewed by me
[2024-03-05 11:51] LABS: Glucose - Point of Care 98 mg/dl (70-99)
--- NOTE | 2024-03-05 11:55 | W.DS.TRANS ---
DC Summary - [facility]
-
Discharge Instructions:
Discharge Diagnosis/Procedures anemia s/p 1 unit PRBC, TACO
Diet Tube feeding
Activity As tolerated
Bathing Restrictions None
Instructions:
Stand-Alone Forms:
Changes to Home Medications: No
Discharge Medications:
DC Medications w/original date entered in [facility]
insulin aspart U-100 100 unit/mL subcutaneous solution (Novolog U-100 Insulin aspart) 0 sliding scale dose SC MEALS Diabetes 05/22/23
insulin glargine 100 unit/mL subcutaneous solution (Lantus U-100 Insulin) 15 unit SC DAILY Diabetes 05/22/23
melatonin 3 mg tablet 6 mg feeding tube HS 05/22/23
albuterol sulfate 90 mcg/actuation aerosol inhaler 2 puff inhalation R Q4HPRN PRN sob/wheezing 06/13/23
acetaminophen 325 mg tablet (Tylenol) 650 mg feeding tube Q4HPRN PRN mild pain 08/27/23
fluticasone furoate 100 mcg-vilanterol 25 mcg/dose inhalation powder (Breo Ellipta) 1 inh inhalation R DAILY Lung/breathing issues #0 ea 08/29/23
heparin (porcine) 5,000 unit/mL injection solution 5,000 unit SC Q12H Blood clot prevention/tx #0 mL 08/29/23
isosorbide dinitrate 10 mg tablet 10 mg feeding tube TID Blood pressure #0 tabs 08/29/23
B Complex-C (W/Folic Acid) 1 tab feeding tube DAILY 12/11/23
carvedilol 6.25 mg tablet 6.25 mg feeding tube BID Blood Pressure 03/04/24
docusate sodium 50 mg/5 mL oral liquid 10 ml feeding tube BID Constipation 03/04/24
ipratropium 0.5 mg-albuterol 3 mg (2.5 mg base)/3 mL nebulization soln 3 ml inhalation R Q8HPRN Lung/Breathing Issues 03/04/24
midodrine 10 mg tablet 10 mg feeding tube MOWEFR 03/04/24
polyethylene glycol 3350 17 gram oral powder packet (Miralax) 17 g feeding tube DAILYPRN PRN constipation 03/04/24
sennosides 8.6 mg tablet (senna) 8.6 mg feeding tube HS Constipation 03/04/24
lorazepam 1 mg tablet 1 mg feeding tube HS #5 tabs 03/05/24
lorazepam 2 mg tablet 2 mg feeding tube MOWEFR Mental Health/Anxiety #5 tabs 03/05/24
Home Medication Changes
Pending Results: No
Total time spent discharging patient (in min): 42
--- NOTE | 2024-03-05 12:09 | CM ---
Addendum entered by Raeann West 03/05/24 12:27:
Transport at 6PM
Facility and pts son made aware
Original Note:
Pt admitted after receiving blood transfusion for obs
Pt is a LTR from [facility] - confirmed with Tram at [facility]
Spoke with pts son Devin - plan to return at d/c
Per Dr Barr pt can return - notified Tram - and aware
Discussed DOLL with son
Plan - return to [facility] when transport obtained
R - [phone]
F - [phone]
[2024-03-05 13:34] LABS: Glucose - Point of Care 97 mg/dl (70-99)
[2024-03-05] MEDS: BENADRYL ELIXIR 25 MG TUBE (14:42)
[2024-03-05 15:00] VITALS: BP 163/61
[2024-03-05] MEDS: ISORDIL 10 MG TUBE (16:22)
[2024-03-05 17:11] LABS: Glucose - Point of Care 221 mg/dl (70-99)
== END 2024-03-05 18:30 ==
LOC: 3 WEST ACU 21:12
PROVIDERS: Physician Assistant; Specialist; ADMITTING PHYSICIAN Internal Medicine; ATTENDING PHYSICIAN Internal Medicine; EMERGENCY PHYSICIAN Student in an Organized Health Care Education/Training Program; FAMILY PHYSICIAN Internal Medicine; OTHER PHYSICIAN Student in an Organized Health Care Education/Training Program
DX: E87.71 Transfusion associated circulatory overload (principal); R79.89 Other specified abnormal findings of blood chemistry; J96.11 Chronic respiratory failure with hypoxia; J98.4 Other disorders of lung; D63.8 Anemia in other chronic diseases classified elsewhere; I25.10 Atherosclerotic heart disease of native coronary artery without angina pectoris; I42.9 Cardiomyopathy, unspecified; N18.6 End stage renal disease; G20.A1 Parkinson's disease without dyskinesia, without mention of fluctuations; E11.22 Type 2 diabetes mellitus with diabetic chronic kidney disease; E78.5 Hyperlipidemia, unspecified; I13.2 Hypertensive heart and chronic kidney disease with heart failure and with stage 5 chronic kidney disease, or end stage renal disease; E78.00 Pure hypercholesterolemia, unspecified; R45.1 Restlessness and agitation; Z99.2 Dependence on renal dialysis; Z79.4 Long term (current) use of insulin; Z79.51 Long term (current) use of inhaled steroids
CPT/HCPCS: 90935; 36430; 71045; 71046; 80051; 80053; 82607; 82728; 82962; 83540; 83550; 85025; 85027; 86850; 86900; 86901; 86920; 87070; 87147; 94640; 96374; 99291; G0378; P9016; P9047; Q5106

== ENCOUNTER 2024-03-13 03:33 | Emergency (ER) | payer MEDICARE, OTHER, SELFPAY ==
[2024-03-13 03:47] VITALS: BP 145/47
[2024-03-13 03:49] VITALS: BP 145/47
[2024-03-13 04:00] VITALS: BP 150/52
--- NOTE | 2024-03-13 04:08 | ED.GENMED ---
History of Present Illness
General
Chief Complaint: Catheter/Tube Problem
Source: family
Exam Limitations: clinical condition
Time Seen by Provider: 03/13/24 03:34
History of Present Illness
History of Present Illness:
83-year-old male with history of intracranial hemorrhage, Parkinson's, end-stage renal disease and other chronic illness who presents after his G-tube tubing became cracked. No other complaints by his son.
Past History
Past History
ED Past Medical History: HTN, Hypercholesterolemia and Other (ESRD, Parkinson's disease, intracranial hemorrhage); Negative IDDM
ED Past Surgical History: Other (RUE Fistula)
Social History
Tobacco: Non-smoker
Alcohol: None
Drug: None
Personal: Other
Employment: Other
Family History
Family History: Unable to obtain
Phy Exam
Physical Exam
Physical Exam:
CONSTITUTIONAL Vital signs reviewed, chronically ill-appearing
HEAD atraumatic, normocephalic.
EYES eyelids normal to inspection, Extraocular muscles intact, Conjunctiva normal, Sclera normal.
NECK normal range of motion, Trachea midline, no jugular venous distention.
RESP no respiratory distress
Abdomen no distention, G-tube noted left upper quadrant with cracked tubing.
BACK No obvious deformities
UPPER EXTREMITY right upper extremity AV graft
LOWER EXTREMITY no edema
NEURO nonverbal.
SKIN Skin warm, dry, and normal in color.
PSYCHIATRIC Patient oriented to person place and time, Normal affect.
Course
Orders/Labs/Results
Orders:
Orders
03/13/24 03:59
Tube Check [CR Cont Inj Eval Tube(by Rad)] Urgent
Comment:
Reason For Exam: g tube replacement
Vital Signs
Initial and Last Documented VS:
Initial Vital Signs
Temp Pulse Resp BP Pulse Ox
98.2 F 99 20 145/47 100
03/13/24 03:47 03/13/24 03:47 03/13/24 03:47 03/13/24 03:47 03/13/24 03:47
Last Documented Vital Signs
Temp Pulse Resp BP Pulse Ox
98.2 F 99 20 145/47 100
03/13/24 03:47 03/13/24 03:47 03/13/24 03:47 03/13/24 03:47 03/13/24 03:47
Procedures
Other
Indication for procedure:: G-tube malfunction
Procedure completed by: Dr. Valenzuela
Consent form signed: No
If no, reason: Emergency procedure
Additional Procedure:
18 Burmese G-tube removed after balloon was deflated. 20 Burmese tube replaced. Flushes normally.
MDM/Problems Addressed
MDM/Problems Addressed:
G-tube malfunction
Chronic conditions affecting care:
Parkinson's disease, end-stage renal disease
*Pulse Oximetry
Patient hypoxic: no
*Critical Care Note
Total Time (30-74mins, 75-104mins- exclusive of procedures): Not Applicable
Data Reviewed
Source: family
Patient Management
Social determinants of health affecting care: Living situation
Escalation/DeEscalation of care consider admission/obs:
G-tube replaced. Check tube study. Anticipate discharge
ED Attending Note
-
Portions of this chart may have been created with voice recognition software.� Occasional wrong word or��sound alike� substitutions may have occurred due to the inherent limitations of voice recognition software.
Discharge Plan
Departure
Patient Disposition: Home (Routine Discharge)
Date of Disposition: 03/13/24
Time of Disposition: 04:11
Patient with high blood pressure during this ER visit?: Yes
Discharge Problem:
Gastrostomy tube dysfunction
Instructions: How to Care for Your Gastrostomy Tube, BLOOD PRESSURE
Prescriptions:
No Action
insulin glargine [Lantus U-100 Insulin] 100 unit/mL Solution
15 unit SC DAILY
melatonin 3 mg Tablet
6 mg feeding tube HS
insulin aspart U-100 [Novolog U-100 Insulin aspart] 100 unit/mL Solution
0 sliding scale dose SC MEALS
Patient Comments:
03/04/24: if 200-250 = 2u; 251-300= 4u; 301-350= 6u; 351-400 = 8u
albuterol sulfate 90 mcg/actuation Hfa Aerosol Inhaler
2 puff INHALATION R Q4HPRN PRN (Reason: sob/wheezing)
acetaminophen [Tylenol] 325 mg Tablet
650 mg feeding tube Q4HPRN PRN (Reason: mild pain)
isosorbide dinitrate 10 mg Tablet
10 mg feeding tube TID Qty: 0 0RF
heparin (porcine) 5,000 unit/mL Solution
5,000 unit SC Q12H Qty: 0 0RF
fluticasone furoate-vilanterol [Breo Ellipta] 100-25 mcg/dose Blister With Device
1 inh INHALATION R DAILY Qty: 0 0RF
B Complex-C (W/Folic Acid) tablet
1 tab feeding tube DAILY
docusate sodium 50 mg/5 mL Liquid
10 ml feeding tube BID
sennosides [senna] 8.6 mg Tablet
8.6 mg feeding tube HS
carvedilol 6.25 mg Tablet
6.25 mg feeding tube BID
ipratropium-albuterol 0.5 mg-3 mg(2.5 mg base)/3 mL Solution For Nebulization
3 ml INHALATION R Q8HPRN
polyethylene glycol 3350 [Miralax] 17 gram Powder In Packet
17 g feeding tube DAILYPRN PRN (Reason: constipation)
midodrine 10 mg Tablet
10 mg feeding tube MOWEFR
lorazepam 2 mg Tablet
2 mg feeding tube MOWEFR Qty: 5 0RF
lorazepam 1 mg Tablet
1 mg feeding tube HS Qty: 5 0RF
Activity Restrictions/Additional Instructions:
Return for abdominal pain, vomiting, shortness of breath, fevers or any other concerns.
Interventions
Interventions:
*General Assessment Last Done: 03/13/24 03:39
ED- Fall Risk Assessment Last Done: 03/13/24 03:46
*ED COVID-19 Vaccine History Last Done: 03/13/24 03:39
JA-Dlkbuc-Hcopmmonhu Assessment Last Done: 03/13/24 03:41
ED-Male Genitourinary Assessment Last Done: 03/13/24 03:40
Discharge Date and Time
Print Language: SWEDISH
[2024-03-13 04:36] VITALS: BP 128/52
== END 2024-03-13 04:55 | disposition home or self-care (01) ==
LOC: EMR 03:33
PROVIDERS: EMERGENCY PHYSICIAN Emergency Medicine
DX: K94.23 Gastrostomy malfunction (principal); I12.0 Hypertensive chronic kidney disease with stage 5 chronic kidney disease or end stage renal disease; N18.6 End stage renal disease; G20.A1 Parkinson's disease without dyskinesia, without mention of fluctuations
CPT/HCPCS: 99284; 43762; 49465